=== PATIENT | female | born 1940 | race Caucasian/White ===

== ENCOUNTER 2022-09-30 13:47 | Emergency (ER) | payer MEDICAID, MEDICARE ==
[2022-09-30] MEDS ORDERED: Sodium Chloride 0.9% 1,000 ML IV ONE (16:11)
[2022-09-30 17:07] LABS: CORONAVIRUS COVID-19 NAA NEGATIVE (NEGATIVE)
[2022-09-30] MEDS ORDERED: Nitrofurantoin Monohydrate/Macrocrystalline 100 MG Cap PO STA (18:13)
== END 2022-09-30 21:55 | disposition home or self-care (01) ==
LOC: JD.ED 13:47
DX: N39.0 Urinary tract infection, site not specified (principal); E78.00 Pure hypercholesterolemia, unspecified; I12.9 Hypertensive chronic kidney disease with stage 1 through stage 4 chronic kidney disease, or unspecified chronic kidney disease; N18.9 Chronic kidney disease, unspecified; E03.9 Hypothyroidism, unspecified; M19.90 Unspecified osteoarthritis, unspecified site; Z86.16 Personal history of COVID-19; Z87.891 Personal history of nicotine dependence; Z88.8 Allergy status to other drugs, medicaments and biological substances; Z79.01 Long term (current) use of anticoagulants; Z79.899 Other long term (current) drug therapy; Z20.822 Contact with and (suspected) exposure to COVID-19
CPT/HCPCS: 0241U; 36415; 80053; 81001; 83605; 83735; 84443; 84484; 85025; 87040; 87086; 93005; 96360; 96361; 99284; A9270; J7030; 87088; 87186; 93010; 99283

== ENCOUNTER 2022-11-11 07:53 | Emergency (ER) | payer MEDICARE, BC ==
[2022-11-11 09:44] LABS: BASOPHILS ABSOLUTE AUTO 0.01 K/mm3 (0.01-0.08); BASOPHILS PERCENT AUTO 0.1 % (0.1-1.2); EOSINOPHILS ABSOLUTE AUTO 0.05 K/mm3 (0.04-0.36); EOSINOPHILS PERCENT AUTO 0.6 (0.7-5.8); HEMATOCRIT 34.2 % (34.1-44.9); IMMATURE GRAN ABSOLUTE AUTO 0.03 K/mm3 (0.00-0.10); IMMATURE GRAN PERCENT AUTO 0.4 % (<=1.0); LYMPHOCYTES ABSOLUTE AUTO 0.81 K/mm3 (1.18-3.74); LYMPHOCYTES PERCENT AUTO 9.7 % (19.3-51.7); MEAN CORPUSCULAR HEMOGLOBIN 30.7 pg (25.6-32.2); MEAN CORPUSCULAR HGB CONC 32.2 g/dl (32.2-35.5); MEAN CORPUSCULAR VOLUME 95.5 fl (79.4-94.8); MEAN PLATELET VOLUME 9.3 fl (9.4-12.3); MONOCYTES ABSOLUTE AUTO 0.95 K/mm3 (0.24-0.36); MONOCYTES PERCENT AUTO 11.3 % (4.7-12.5); NEUTROPHILS ABSOLUTE AUTO 6.54 K/mm3 (1.56-6.13); NEUTROPHILS PERCENT AUTO 77.9 % (34.0-71.1); PLATELET COUNT,PLT 381 K/mm3 (182-369); RED BLOOD CELL COUNT 3.58 M/mm3 (3.98-5.22); WHITE BLOOD CELL COUNT,WBC 8.39 K/mm3 (3.98-10.04)
[2022-11-11 10:11] LABS: A/G RATIO 0.7 (1-2); ALBUMIN 2.2 g/dl (3.4-5.0); ANION GAP 10.1 (5-15); BILIRUBIN TOTAL 0.7 mg/dL (0.2-1.0); CALCIUM 8.1 mg/dL (8.5-10.1); EST CRCL DRUG DOSING (CG) 31.69 mL/min; POTASSIUM,K 3.1 mEq/L (3.5-5.1); PROTEIN TOTAL,TP 5.4 g/dl (6.4-8.2)
[2022-11-11 10:36] LABS: APPEARANCE,URINE SLT CLOUDY (Clear); BILIRUBIN,URINE NEGATIVE (Negative); COLOR,URINE YELLOW (Yellow); GLUCOSE,URINE NEGATIVE (Negative); KETONES,URINE NEGATIVE (Negative); LEUKOCYTE ESTERASE,URINE 1+ (Negative); NITRITE,URINE NEGATIVE (Negative); OCCULT BLOOD,URINE 1+ (Negative); PH,URINE 7.5 (5.0-8.0); PROTEIN,URINE NEGATIVE (Negative); UROBILINOGEN,URINE 0.2 (0.2-1.0)
[2022-11-11 11:09] LABS: BACTERIA,URINE RARE /hpf (FEW); EPITHELIAL CELLS,URINE 0-5 /hpf (0-5); MUCUS,URINE FEW /hpf (FEW); RBC,URINE 0-5 /hpf (0-5); WBC,URINE 0-5 /hpf (0-5)
== END 2022-11-11 15:48 | disposition home or self-care (01) ==
LOC: JD.ED 07:53
DX: R54 Age-related physical debility (principal); I12.9 Hypertensive chronic kidney disease with stage 1 through stage 4 chronic kidney disease, or unspecified chronic kidney disease; N18.9 Chronic kidney disease, unspecified; E03.9 Hypothyroidism, unspecified; Z86.16 Personal history of COVID-19; Z79.01 Long term (current) use of anticoagulants; Z79.899 Other long term (current) drug therapy
CPT/HCPCS: 36415; 80053; 81001; 85025; 93005; 99282; 99285

== ENCOUNTER 2022-11-14 10:04 | Inpatient (IN) | payer BC, MEDICARE ==
[2022-11-14] MEDS ORDERED: Sodium Chloride 0.9% 10 ML Syringe FLUSH PRN (10:30)
[2022-11-14] MEDS ORDERED: Sodium Chloride 0.9% 500 ML IV ONE (10:43)
[2022-11-14 11:02] LABS: EOSINOPHILS ABSOLUTE AUTO 0.05 K/mm3 (0.04-0.36); EOSINOPHILS PERCENT AUTO 0.9 (0.7-5.8); HEMATOCRIT 30.4 % (34.1-44.9); HEMOGLOBIN 9.8 gm/dl (11.2-15.7); IMMATURE GRAN ABSOLUTE AUTO 0.01 K/mm3 (0.00-0.10); IMMATURE GRAN PERCENT AUTO 0.2 % (<=1.0); LYMPHOCYTES ABSOLUTE AUTO 0.73 K/mm3 (1.18-3.74); LYMPHOCYTES PERCENT AUTO 13.5 % (19.3-51.7); MEAN CORPUSCULAR HEMOGLOBIN 30.5 pg (25.6-32.2); MEAN CORPUSCULAR HGB CONC 32.2 g/dl (32.2-35.5); MEAN CORPUSCULAR VOLUME 94.7 fl (79.4-94.8); MEAN PLATELET VOLUME 9.2 fl (9.4-12.3); MONOCYTES PERCENT AUTO 7.4 % (4.7-12.5); NEUTROPHILS ABSOLUTE AUTO 4.21 K/mm3 (1.56-6.13); RED BLOOD CELL COUNT 3.21 M/mm3 (3.98-5.22)
[2022-11-14 11:04] LABS: APPEARANCE,URINE CLEAR (Clear); BILIRUBIN,URINE NEGATIVE (Negative); COLOR,URINE YELLOW (Yellow); GLUCOSE,URINE NEGATIVE (Negative); KETONES,URINE NEGATIVE (Negative); LEUKOCYTE ESTERASE,URINE 1+ (Negative); NITRITE,URINE NEGATIVE (Negative); OCCULT BLOOD,URINE TRACE-INTACT (Negative); PROTEIN,URINE NEGATIVE (Negative); UROBILINOGEN,URINE 0.2 (0.2-1.0)
[2022-11-14 11:08] LABS: PLATELET COUNT,PLT 260 K/mm3 (182-369)
[2022-11-14 11:25] LABS: A/G RATIO 0.6 (1-2); ALBUMIN 1.9 g/dl (3.4-5.0); BILIRUBIN TOTAL 0.6 mg/dL (0.2-1.0); CALCIUM 7.8 mg/dL (8.5-10.1); EST CRCL DRUG DOSING (CG) 33.17 mL/min; PROTEIN TOTAL,TP 4.9 g/dl (6.4-8.2)
[2022-11-14 11:34] LABS: BACTERIA,URINE MANY /hpf (FEW); MUCUS,URINE NOT SEEN /hpf (FEW); RBC,URINE 0-5 /hpf (0-5); SQUAMOUS EPITHELIAL CELLS,UR 0-5 /hpf (0-5)
[2022-11-14] MEDS ORDERED: cefTRIAXone 1 GM in Sodium Chloride 0.9% 100 ML IV ONE (13:44)
[2022-11-14] MEDS ORDERED: oxyCODONE 5 MG Tab PO PRN (15:00)
[2022-11-14] MEDS ORDERED: Ondansetron 4 MG Tab.DIS PO PRN ×2 (18:03→18:33)
[2022-11-14] MEDS: Metoprolol Tartrate 25 MG Tab PO SCH (20:42)
[2022-11-14] MEDS: QUEtiapine 100 MG Tab PO SCH (20:43)
[2022-11-14] MEDS: Potassium Chloride 20 MEQ Tab.ER PO SCH (20:44)
[2022-11-14] MEDS: Apixaban 5 MG Tab PO SCH (20:44)
[2022-11-14] MEDS: Melatonin 3 MG Tab PO SCH (20:44)
[2022-11-15] MEDS: Levothyroxine 75 MCG Tab PO SCH (05:44)
[2022-11-15 05:56] LABS: EOSINOPHILS ABSOLUTE AUTO 0.04 K/mm3 (0.04-0.36); EOSINOPHILS PERCENT AUTO 0.5 (0.7-5.8); HEMATOCRIT 33.8 % (34.1-44.9); IMMATURE GRAN ABSOLUTE AUTO 0.01 K/mm3 (0.00-0.10); IMMATURE GRAN PERCENT AUTO 0.1 % (<=1.0); LYMPHOCYTES ABSOLUTE AUTO 0.77 K/mm3 (1.18-3.74); LYMPHOCYTES PERCENT AUTO 10.5 % (19.3-51.7); MEAN CORPUSCULAR HEMOGLOBIN 30.7 pg (25.6-32.2); MEAN CORPUSCULAR HGB CONC 32.5 g/dl (32.2-35.5); MEAN CORPUSCULAR VOLUME 94.4 fl (79.4-94.8); MEAN PLATELET VOLUME 9.3 fl (9.4-12.3); MONOCYTES ABSOLUTE AUTO 0.38 K/mm3 (0.24-0.36); MONOCYTES PERCENT AUTO 5.2 % (4.7-12.5); NEUTROPHILS ABSOLUTE AUTO 6.12 K/mm3 (1.56-6.13); NEUTROPHILS PERCENT AUTO 83.7 % (34.0-71.1); PLATELET COUNT,PLT 304 K/mm3 (182-369); RED BLOOD CELL COUNT 3.58 M/mm3 (3.98-5.22); WHITE BLOOD CELL COUNT,WBC 7.32 K/mm3 (3.98-10.04)
[2022-11-15 06:07] LABS: A/G RATIO 0.6 (1-2); ALBUMIN 1.9 g/dl (3.4-5.0); ANION GAP 14.9 (5-15); BILIRUBIN TOTAL 0.6 mg/dL (0.2-1.0); BUN/CREATININE RATIO 11.1 (14-18); CALCIUM 7.6 mg/dL (8.5-10.1); CREATININE 0.9 mg/dL (0.55-1.02); EST CRCL DRUG DOSING (CG) 35.21 mL/min; MAGNESIUM 1.6 mg/dL (1.8-2.4); POTASSIUM,K 2.9 mEq/L (3.5-5.1)
[2022-11-15] MEDS: Apixaban 5 MG Tab PO SCH ×3 (06:45→21:09)
[2022-11-15] MEDS: QUEtiapine 100 MG Tab PO SCH ×2 (06:46→21:09)
[2022-11-15] MEDS: Metoprolol Tartrate 25 MG Tab PO SCH ×3 (06:46→21:09)
[2022-11-15] MEDS: Potassium Chloride 20 MEQ Tab.ER PO SCH ×3 (06:46→21:09)
[2022-11-15] MEDS: Melatonin 3 MG Tab PO SCH ×2 (06:46→21:09)
[2022-11-15] MEDS: Potassium Chloride 10 MEQ in Premix Bag 1 BAG IV SCH ×8 (09:35→20:00)
[2022-11-15] MEDS: Carboxymethylcellulose Sodium 1% Ophth Gel 15 ML Bottle EYEBOTH SCH (09:39)
[2022-11-15] MEDS: Anastrozole 1 MG Tab PO SCH (09:42)
[2022-11-15] MEDS: Famotidine 10 MG Tab PO SCH (09:43)
[2022-11-15] MEDS: CYANOCOBALAMIN 100 MCG PO SCH (09:43)
[2022-11-15] MEDS: QUEtiapine 25 MG Tab PO SCH ×2 (09:43→15:38)
[2022-11-15] MEDS ORDERED: oxyCODONE 5 MG Tab PO PRN (10:49)
[2022-11-15] MEDS: cefTRIAXone 2 GM in Sodium Chloride 0.9% 100 ML IV SCH (15:33)
[2022-11-15] MEDS ORDERED: Magnesium Sulfate/Water 4 GM in Premix Bag 1 BAG IV ONE (17:00)
[2022-11-16] MEDS: Melatonin 3 MG Tab PO SCH ×3 (00:53→23:46)
[2022-11-16] MEDS: Levothyroxine 75 MCG Tab PO SCH (06:10)
[2022-11-16] MEDS ORDERED: oxyCODONE 5 MG Tab PO PRN (07:54)
[2022-11-16] MEDS: Anastrozole 1 MG Tab PO SCH (08:52)
[2022-11-16] MEDS: Metoprolol Tartrate 25 MG Tab PO SCH ×3 (08:52→23:45)
[2022-11-16] MEDS: Apixaban 5 MG Tab PO SCH ×3 (08:52→23:45)
[2022-11-16] MEDS: Potassium Chloride 20 MEQ Tab.ER PO SCH ×3 (08:52→23:45)
[2022-11-16] MEDS: QUEtiapine 25 MG Tab PO SCH ×2 (08:53→15:00)
[2022-11-16] MEDS: Carboxymethylcellulose Sodium 1% Ophth Gel 15 ML Bottle EYEBOTH SCH (08:53)
[2022-11-16] MEDS: CYANOCOBALAMIN 100 MCG PO SCH (08:53)
[2022-11-16] MEDS: Famotidine 10 MG Tab PO SCH (08:53)
[2022-11-16] MEDS: cefTRIAXone 2 GM in Sodium Chloride 0.9% 100 ML IV SCH (14:37)
[2022-11-16] MEDS: QUEtiapine 100 MG Tab PO SCH ×2 (22:34→23:46)
[2022-11-17 06:03] LABS: BASOPHILS ABSOLUTE AUTO 0.01 K/mm3 (0.01-0.08); BASOPHILS PERCENT AUTO 0.1 % (0.1-1.2); EOSINOPHILS PERCENT AUTO 1.1 (0.7-5.8); HEMATOCRIT 35.2 % (34.1-44.9); HEMOGLOBIN 11.6 gm/dl (11.2-15.7); IMMATURE GRAN ABSOLUTE AUTO 0.02 K/mm3 (0.00-0.10); IMMATURE GRAN PERCENT AUTO 0.2 % (<=1.0); LYMPHOCYTES ABSOLUTE AUTO 0.82 K/mm3 (1.18-3.74); LYMPHOCYTES PERCENT AUTO 9.3 % (19.3-51.7); MEAN CORPUSCULAR VOLUME 94.1 fl (79.4-94.8); MEAN PLATELET VOLUME 9.5 fl (9.4-12.3); MONOCYTES ABSOLUTE AUTO 0.43 K/mm3 (0.24-0.36); MONOCYTES PERCENT AUTO 4.9 % (4.7-12.5); NEUTROPHILS ABSOLUTE AUTO 7.43 K/mm3 (1.56-6.13); NEUTROPHILS PERCENT AUTO 84.4 % (34.0-71.1); PLATELET COUNT,PLT 295 K/mm3 (182-369); RED BLOOD CELL COUNT 3.74 M/mm3 (3.98-5.22); WHITE BLOOD CELL COUNT,WBC 8.81 K/mm3 (3.98-10.04)
[2022-11-17] MEDS: Levothyroxine 75 MCG Tab PO SCH (06:14)
[2022-11-17 06:23] LABS: A/G RATIO 0.6 (1-2); ANION GAP 11.9 (5-15); BILIRUBIN TOTAL 0.5 mg/dL (0.2-1.0); BUN/CREATININE RATIO 7.5 (14-18); CALCIUM 7.6 mg/dL (8.5-10.1); CREATININE 0.8 mg/dL (0.55-1.02); EST CRCL DRUG DOSING (CG) 39.61 mL/min; POTASSIUM,K 2.9 mEq/L (3.5-5.1); PROTEIN TOTAL,TP 5.2 g/dl (6.4-8.2)
[2022-11-17] MEDS ORDERED: Magnesium Sulfate/Water 2 GM in Premix Bag 1 BAG IV ONE (08:05)
[2022-11-17] MEDS ORDERED: Sodium Chloride 0.9% 500 ML IV ONE (08:38)
[2022-11-17] MEDS ORDERED: Sodium Chloride 0.9% 500 ML ONE (08:40)
[2022-11-17] MEDS: Potassium Chloride 10 MEQ in Premix Bag 1 BAG IV SCH ×4 (09:01→14:14)
[2022-11-17] MEDS: Metoprolol Tartrate 25 MG Tab PO SCH ×2 (09:02→21:06)
[2022-11-17] MEDS: CYANOCOBALAMIN 100 MCG PO SCH (09:13)
[2022-11-17] MEDS: Carboxymethylcellulose Sodium 1% Ophth Gel 15 ML Bottle EYEBOTH SCH (09:13)
[2022-11-17] MEDS: Potassium Chloride 20 MEQ Tab.ER PO SCH ×2 (09:14→21:08)
[2022-11-17] MEDS: Apixaban 5 MG Tab PO SCH ×2 (09:14→21:07)
[2022-11-17] MEDS: Famotidine 10 MG Tab PO SCH (09:14)
[2022-11-17] MEDS: Anastrozole 1 MG Tab PO SCH (09:14)
[2022-11-17] MEDS: QUEtiapine 25 MG Tab PO SCH ×2 (09:14→16:02)
[2022-11-17] MEDS: cefTRIAXone 2 GM in Sodium Chloride 0.9% 100 ML IV SCH (15:48)
[2022-11-17] MEDS: Sodium Chloride 0.9% 1,000 ML IV SCH (16:10)
[2022-11-17] MEDS: Melatonin 3 MG Tab PO SCH (21:07)
[2022-11-17] MEDS: QUEtiapine 100 MG Tab PO SCH (21:07)
[2022-11-18] MEDS: Sodium Chloride 0.9% 1,000 ML IV SCH (05:56)
[2022-11-18] MEDS: Levothyroxine 75 MCG Tab PO SCH (06:00)
[2022-11-18] MEDS: Potassium Chloride 20 MEQ Tab.ER PO SCH ×2 (09:49→21:12)
[2022-11-18] MEDS: Metoprolol Tartrate 25 MG Tab PO SCH ×2 (09:49→21:09)
[2022-11-18] MEDS: Anastrozole 1 MG Tab PO SCH (09:49)
[2022-11-18] MEDS: Apixaban 5 MG Tab PO SCH ×2 (09:49→21:09)
[2022-11-18] MEDS: Famotidine 10 MG Tab PO SCH (09:49)
[2022-11-18] MEDS: QUEtiapine 25 MG Tab PO SCH ×2 (09:50→14:18)
[2022-11-18] MEDS: Carboxymethylcellulose Sodium 1% Ophth Gel 15 ML Bottle EYEBOTH SCH (09:50)
[2022-11-18] MEDS: CYANOCOBALAMIN 100 MCG PO SCH (09:50)
[2022-11-18 13:48] LABS: ANION GAP 11.6 (5-15); BUN/CREATININE RATIO 6.7 (14-18); CALCIUM 7.9 mg/dL (8.5-10.1); CREATININE 1.2 mg/dL (0.55-1.02); EST CRCL DRUG DOSING (CG) 26.41 mL/min; MAGNESIUM 2.3 mg/dL (1.8-2.4); POTASSIUM,K 2.6 mEq/L (3.5-5.1)
[2022-11-18] MEDS: cefTRIAXone 2 GM in Sodium Chloride 0.9% 100 ML IV SCH (14:18)
[2022-11-18] MEDS: QUEtiapine 100 MG Tab PO SCH (21:09)
[2022-11-18] MEDS: Melatonin 3 MG Tab PO SCH (21:09)
[2022-11-19] MEDS: Levothyroxine 75 MCG Tab PO SCH (06:05)
[2022-11-19] MEDS: Apixaban 5 MG Tab PO SCH ×2 (10:23→20:56)
[2022-11-19] MEDS: Anastrozole 1 MG Tab PO SCH (10:23)
[2022-11-19] MEDS: Famotidine 10 MG Tab PO SCH (10:24)
[2022-11-19] MEDS: Metoprolol Tartrate 25 MG Tab PO SCH ×2 (10:24→20:56)
[2022-11-19] MEDS: Potassium Chloride 20 MEQ Tab.ER PO SCH ×3 (10:24→20:55)
[2022-11-19] MEDS: CYANOCOBALAMIN 100 MCG PO SCH (10:25)
[2022-11-19] MEDS: Carboxymethylcellulose Sodium 1% Ophth Gel 15 ML Bottle EYEBOTH SCH (10:25)
[2022-11-19] MEDS: QUEtiapine 25 MG Tab PO SCH ×2 (10:25→14:35)
[2022-11-19] MEDS: Cefdinir 300 MG Cap PO SCH (14:35)
[2022-11-19] MEDS: QUEtiapine 100 MG Tab PO SCH (20:56)
[2022-11-19] MEDS: Melatonin 3 MG Tab PO SCH (20:56)
[2022-11-20] MEDS: Levothyroxine 75 MCG Tab PO SCH (06:09)
[2022-11-20] MEDS: Potassium Chloride 20 MEQ Tab.ER PO SCH ×5 (09:13→21:26)
[2022-11-20] MEDS: Famotidine 10 MG Tab PO SCH (09:14)
[2022-11-20] MEDS: Metoprolol Tartrate 25 MG Tab PO SCH ×3 (09:14→21:28)
[2022-11-20] MEDS: Apixaban 5 MG Tab PO SCH ×3 (09:14→21:28)
[2022-11-20] MEDS: Carboxymethylcellulose Sodium 1% Ophth Gel 15 ML Bottle EYEBOTH SCH (09:18)
[2022-11-20] MEDS: CYANOCOBALAMIN 100 MCG PO SCH (09:19)
[2022-11-20 10:16] LABS: BUN/CREATININE RATIO 7.8 (14-18); CALCIUM 7.8 mg/dL (8.5-10.1); CREATININE 0.9 mg/dL (0.55-1.02); EST CRCL DRUG DOSING (CG) 35.21 mL/min
[2022-11-20] MEDS: Cefdinir 300 MG Cap PO SCH (15:34)
[2022-11-20] MEDS: QUEtiapine 25 MG Tab PO SCH ×2 (15:39→15:49)
[2022-11-20] MEDS: Anastrozole 1 MG Tab PO SCH (15:40)
[2022-11-20] MEDS: QUEtiapine 100 MG Tab PO SCH ×2 (21:20→21:36)
[2022-11-20] MEDS: Melatonin 3 MG Tab PO SCH ×2 (21:21→21:29)
[2022-11-21] MEDS: Levothyroxine 75 MCG Tab PO SCH (05:35)
[2022-11-21 05:44] LABS: APPEARANCE,URINE CLEAR (Clear); BILIRUBIN,URINE NEGATIVE (Negative); COLOR,URINE YELLOW (Yellow); GLUCOSE,URINE NEGATIVE (Negative); KETONES,URINE NEGATIVE (Negative); LEUKOCYTE ESTERASE,URINE TRACE (Negative); NITRITE,URINE NEGATIVE (Negative); OCCULT BLOOD,URINE TRACE-INTACT (Negative); PH,URINE 6.5 (5.0-8.0); PROTEIN,URINE NEGATIVE (Negative); UROBILINOGEN,URINE 0.2 (0.2-1.0)
[2022-11-21 06:39] LABS: BACTERIA,URINE MANY /hpf (FEW); EPITHELIAL CELLS,URINE 0-5 /hpf (0-5); MUCUS,URINE RARE /hpf (FEW); RBC,URINE 0-5 /hpf (0-5); WBC CLUMPS,URINE FEW /hpf (NOT SEEN)
[2022-11-21] MEDS: Metoprolol Tartrate 25 MG Tab PO SCH ×2 (11:25→21:50)
[2022-11-21] MEDS: Apixaban 5 MG Tab PO SCH ×2 (11:25→21:50)
[2022-11-21] MEDS: Cefdinir 300 MG Cap PO SCH ×2 (11:26→21:50)
[2022-11-21] MEDS: CYANOCOBALAMIN 100 MCG PO SCH (11:27)
[2022-11-21] MEDS: Carboxymethylcellulose Sodium 1% Ophth Gel 15 ML Bottle EYEBOTH SCH (11:27)
[2022-11-21] MEDS: Famotidine 10 MG Tab PO SCH (11:27)
[2022-11-21] MEDS: QUEtiapine 25 MG Tab PO SCH ×2 (11:31→14:23)
[2022-11-21] MEDS: Anastrozole 1 MG Tab PO SCH (11:42)
[2022-11-21] MEDS: Potassium Chloride 20 MEQ Tab.ER PO SCH ×3 (14:20→21:50)
[2022-11-21] MEDS: QUEtiapine 100 MG Tab PO SCH (21:50)
[2022-11-21] MEDS: Melatonin 3 MG Tab PO SCH (21:53)
[2022-11-22] MEDS: Levothyroxine 75 MCG Tab PO SCH (05:55)
[2022-11-22] MEDS: Apixaban 5 MG Tab PO SCH ×3 (06:04→21:39)
[2022-11-22] MEDS: Metoprolol Tartrate 25 MG Tab PO SCH ×3 (06:05→21:37)
[2022-11-22] MEDS: QUEtiapine 100 MG Tab PO SCH ×2 (06:05→21:38)
[2022-11-22] MEDS: Potassium Chloride 20 MEQ Tab.ER PO SCH ×4 (06:05→21:39)
[2022-11-22] MEDS: Anastrozole 1 MG Tab PO SCH (08:24)
[2022-11-22] MEDS: Famotidine 10 MG Tab PO SCH (08:24)
[2022-11-22] MEDS: Cefdinir 300 MG Cap PO SCH ×2 (08:24→21:37)
[2022-11-22] MEDS: CYANOCOBALAMIN 100 MCG PO SCH (11:01)
[2022-11-22] MEDS: QUEtiapine 25 MG Tab PO SCH ×2 (11:35→15:22)
[2022-11-22] MEDS: Carboxymethylcellulose Sodium 1% Ophth Gel 15 ML Bottle EYEBOTH SCH (11:35)
[2022-11-22] MEDS: Melatonin 3 MG Tab PO SCH (21:39)
[2022-11-23] MEDS: Levothyroxine 75 MCG Tab PO SCH (05:02)
[2022-11-23] MEDS: Metoprolol Tartrate 25 MG Tab PO SCH ×3 (09:52→21:26)
[2022-11-23] MEDS: Anastrozole 1 MG Tab PO SCH ×2 (09:53→10:07)
[2022-11-23] MEDS: Cefdinir 300 MG Cap PO SCH ×2 (09:53→10:07)
[2022-11-23] MEDS: Famotidine 10 MG Tab PO SCH ×2 (09:53→10:07)
[2022-11-23] MEDS: Apixaban 5 MG Tab PO SCH ×3 (09:53→21:29)
[2022-11-23] MEDS: Carboxymethylcellulose Sodium 1% Ophth Gel 15 ML Bottle EYEBOTH SCH ×2 (09:53→10:08)
[2022-11-23] MEDS: Potassium Chloride 20 MEQ Tab.ER PO SCH ×4 (09:53→21:28)
[2022-11-23] MEDS: CYANOCOBALAMIN 100 MCG PO SCH ×2 (09:54→10:08)
[2022-11-23] MEDS: QUEtiapine 25 MG Tab PO SCH ×3 (09:58→15:58)
[2022-11-23] MEDS ORDERED: Amoxicillin 500 MG Cap PO SCH (15:30)
[2022-11-23] MEDS: Amoxicillin 500 MG Cap PO SCH (21:27)
[2022-11-23] MEDS: QUEtiapine 100 MG Tab PO SCH (21:28)
[2022-11-23] MEDS: Melatonin 3 MG Tab PO SCH (21:29)
[2022-11-24 06:01] LABS: BASOPHILS ABSOLUTE AUTO 0.01 K/mm3 (0.01-0.08); BASOPHILS PERCENT AUTO 0.2 % (0.1-1.2); EOSINOPHILS ABSOLUTE AUTO 0.13 K/mm3 (0.04-0.36); HEMATOCRIT 33.6 % (34.1-44.9); HEMOGLOBIN 10.8 gm/dl (11.2-15.7); IMMATURE GRAN ABSOLUTE AUTO 0.03 K/mm3 (0.00-0.10); IMMATURE GRAN PERCENT AUTO 0.5 % (<=1.0); LYMPHOCYTES ABSOLUTE AUTO 0.88 K/mm3 (1.18-3.74); LYMPHOCYTES PERCENT AUTO 13.3 % (19.3-51.7); MEAN CORPUSCULAR HEMOGLOBIN 31.1 pg (25.6-32.2); MEAN CORPUSCULAR HGB CONC 32.1 g/dl (32.2-35.5); MEAN CORPUSCULAR VOLUME 96.8 fl (79.4-94.8); MEAN PLATELET VOLUME 10.5 fl (9.4-12.3); MONOCYTES ABSOLUTE AUTO 0.52 K/mm3 (0.24-0.36); MONOCYTES PERCENT AUTO 7.9 % (4.7-12.5); NEUTROPHILS ABSOLUTE AUTO 5.03 K/mm3 (1.56-6.13); NEUTROPHILS PERCENT AUTO 76.1 % (34.0-71.1); PLATELET COUNT,PLT 334 K/mm3 (182-369); RED BLOOD CELL COUNT 3.47 M/mm3 (3.98-5.22)
[2022-11-24 06:05] LABS: ANION GAP 11.8 (5-15); BUN/CREATININE RATIO 8.9 (14-18); CALCIUM 7.8 mg/dL (8.5-10.1); CREATININE 0.9 mg/dL (0.55-1.02); EST CRCL DRUG DOSING (CG) 34.93 mL/min; POTASSIUM,K 2.8 mEq/L (3.5-5.1)
[2022-11-24] MEDS: Levothyroxine 75 MCG Tab PO SCH (06:32)
[2022-11-24] MEDS: Amoxicillin 500 MG Cap PO SCH ×3 (06:32→21:49)
[2022-11-24] MEDS: Famotidine 10 MG Tab PO SCH (08:26)
[2022-11-24] MEDS: Potassium Chloride 20 MEQ Tab.ER PO SCH ×3 (08:26→21:49)
[2022-11-24] MEDS: Apixaban 5 MG Tab PO SCH ×2 (08:26→21:49)
[2022-11-24] MEDS: Metoprolol Tartrate 25 MG Tab PO SCH ×2 (08:27→21:49)
[2022-11-24] MEDS: Anastrozole 1 MG Tab PO SCH (08:27)
[2022-11-24] MEDS: Carboxymethylcellulose Sodium 1% Ophth Gel 15 ML Bottle EYEBOTH SCH (08:29)
[2022-11-24] MEDS: CYANOCOBALAMIN 100 MCG PO SCH (09:00)
[2022-11-24] MEDS: QUEtiapine 25 MG Tab PO SCH ×2 (09:00→15:02)
[2022-11-24] MEDS: Melatonin 3 MG Tab PO SCH (21:49)
[2022-11-24] MEDS: QUEtiapine 100 MG Tab PO SCH (21:49)
[2022-11-25] MEDS ORDERED: Midodrine 5 MG Tab PO ONE (00:15)
[2022-11-25] MEDS ORDERED: Sodium Chloride 0.9% 1,000 ML IV SCH (00:30)
[2022-11-25] MEDS ORDERED: Midodrine 5 MG Tab PO SCH (07:00)
[2022-11-25] MEDS: Amoxicillin 500 MG Cap PO SCH ×3 (07:07→21:10)
[2022-11-25] MEDS: Levothyroxine 75 MCG Tab PO SCH (07:08)
[2022-11-25] MEDS: Apixaban 5 MG Tab PO SCH ×2 (08:50→20:32)
[2022-11-25] MEDS: Anastrozole 1 MG Tab PO SCH (08:50)
[2022-11-25] MEDS: Potassium Chloride 20 MEQ Tab.ER PO SCH ×3 (08:50→20:34)
[2022-11-25] MEDS: Famotidine 10 MG Tab PO SCH (08:50)
[2022-11-25] MEDS: Carboxymethylcellulose Sodium 1% Ophth Gel 15 ML Bottle EYEBOTH SCH (08:53)
[2022-11-25] MEDS: CYANOCOBALAMIN 100 MCG PO SCH (09:59)
[2022-11-25] MEDS: QUEtiapine 25 MG Tab PO SCH ×2 (09:59→16:07)
[2022-11-25 11:16] LABS: BASOPHILS ABSOLUTE AUTO 0.01 K/mm3 (0.01-0.08); BASOPHILS PERCENT AUTO 0.2 % (0.1-1.2); EOSINOPHILS ABSOLUTE AUTO 0.12 K/mm3 (0.04-0.36); EOSINOPHILS PERCENT AUTO 2.2 (0.7-5.8); HEMATOCRIT 28.6 % (34.1-44.9); HEMOGLOBIN 9.1 gm/dl (11.2-15.7); IMMATURE GRAN ABSOLUTE AUTO 0.02 K/mm3 (0.00-0.10); IMMATURE GRAN PERCENT AUTO 0.4 % (<=1.0); LYMPHOCYTES ABSOLUTE AUTO 0.76 K/mm3 (1.18-3.74); LYMPHOCYTES PERCENT AUTO 14.2 % (19.3-51.7); MEAN CORPUSCULAR HEMOGLOBIN 30.7 pg (25.6-32.2); MEAN CORPUSCULAR HGB CONC 31.8 g/dl (32.2-35.5); MEAN CORPUSCULAR VOLUME 96.6 fl (79.4-94.8); MEAN PLATELET VOLUME 10.4 fl (9.4-12.3); MONOCYTES ABSOLUTE AUTO 0.41 K/mm3 (0.24-0.36); MONOCYTES PERCENT AUTO 7.6 % (4.7-12.5); NEUTROPHILS ABSOLUTE AUTO 4.04 K/mm3 (1.56-6.13); NEUTROPHILS PERCENT AUTO 75.4 % (34.0-71.1); PLATELET COUNT,PLT 260 K/mm3 (182-369); RED BLOOD CELL COUNT 2.96 M/mm3 (3.98-5.22); WHITE BLOOD CELL COUNT,WBC 5.36 K/mm3 (3.98-10.04)
[2022-11-25 12:26] LABS: A/G RATIO 0.6 (1-2); ALBUMIN 1.7 g/dl (3.4-5.0); ANION GAP 13.6 (5-15); BILIRUBIN TOTAL 0.2 mg/dL (0.2-1.0); BUN/CREATININE RATIO 11.1 (14-18); CALCIUM 7.5 mg/dL (8.5-10.1); CREATININE 0.9 mg/dL (0.55-1.02); EST CRCL DRUG DOSING (CG) 34.95 mL/min; POTASSIUM,K 3.6 mEq/L (3.5-5.1); PROTEIN TOTAL,TP 4.8 g/dl (6.4-8.2)
[2022-11-25] MEDS: Melatonin 3 MG Tab PO SCH (20:33)
[2022-11-25] MEDS: QUEtiapine 100 MG Tab PO SCH (20:33)
[2022-11-26] MEDS: Levothyroxine 75 MCG Tab PO SCH (05:58)
[2022-11-26] MEDS: Amoxicillin 500 MG Cap PO SCH ×4 (05:58→21:19)
[2022-11-26 06:35] LABS: BASOPHILS ABSOLUTE AUTO 0.01 K/mm3 (0.01-0.08); BASOPHILS PERCENT AUTO 0.3 % (0.1-1.2); EOSINOPHILS ABSOLUTE AUTO 0.16 K/mm3 (0.04-0.36); EOSINOPHILS PERCENT AUTO 4.3 (0.7-5.8); HEMOGLOBIN 8.8 gm/dl (11.2-15.7); IMMATURE GRAN ABSOLUTE AUTO 0.01 K/mm3 (0.00-0.10); IMMATURE GRAN PERCENT AUTO 0.3 % (<=1.0); LYMPHOCYTES ABSOLUTE AUTO 1.03 K/mm3 (1.18-3.74); MEAN CORPUSCULAR HEMOGLOBIN 30.9 pg (25.6-32.2); MEAN CORPUSCULAR HGB CONC 31.4 g/dl (32.2-35.5); MEAN CORPUSCULAR VOLUME 98.2 fl (79.4-94.8); MONOCYTES ABSOLUTE AUTO 0.36 K/mm3 (0.24-0.36); MONOCYTES PERCENT AUTO 9.8 % (4.7-12.5); NEUTROPHILS ABSOLUTE AUTO 2.11 K/mm3 (1.56-6.13); NEUTROPHILS PERCENT AUTO 57.3 % (34.0-71.1); PLATELET COUNT,PLT 283 K/mm3 (182-369); RED BLOOD CELL COUNT 2.85 M/mm3 (3.98-5.22); WHITE BLOOD CELL COUNT,WBC 3.68 K/mm3 (3.98-10.04)
[2022-11-26 07:12] LABS: ANION GAP 13.9 (5-15); CALCIUM 8.1 mg/dL (8.5-10.1); CREATININE 0.9 mg/dL (0.55-1.02); EST CRCL DRUG DOSING (CG) 34.95 mL/min; POTASSIUM,K 4.9 mEq/L (3.5-5.1)
[2022-11-26] MEDS: Famotidine 10 MG Tab PO SCH (09:26)
[2022-11-26] MEDS: QUEtiapine 25 MG Tab PO SCH ×2 (09:26→14:03)
[2022-11-26] MEDS: Apixaban 5 MG Tab PO SCH ×3 (09:27→21:27)
[2022-11-26] MEDS: Anastrozole 1 MG Tab PO SCH (09:27)
[2022-11-26] MEDS: Potassium Chloride 20 MEQ Tab.ER PO SCH (09:27)
[2022-11-26] MEDS: CYANOCOBALAMIN 100 MCG PO SCH (09:57)
[2022-11-26] MEDS: Carboxymethylcellulose Sodium 1% Ophth Gel 15 ML Bottle EYEBOTH SCH (09:57)
[2022-11-26] MEDS: Melatonin 3 MG Tab PO SCH ×2 (21:12→21:26)
[2022-11-26] MEDS: QUEtiapine 100 MG Tab PO SCH ×2 (21:12→21:27)
[2022-11-27] MEDS: Amoxicillin 500 MG Cap PO SCH (06:41)
[2022-11-27] MEDS: Levothyroxine 75 MCG Tab PO SCH (06:41)
[2022-11-27] MEDS ORDERED: Potassium Chloride 20 MEQ Tab.ER PO SCH (09:00)
[2022-11-27] MEDS: Apixaban 5 MG Tab PO SCH ×2 (10:32→21:16)
[2022-11-27] MEDS: QUEtiapine 25 MG Tab PO SCH ×2 (10:32→15:15)
[2022-11-27] MEDS: Famotidine 10 MG Tab PO SCH (10:32)
[2022-11-27] MEDS: CYANOCOBALAMIN 100 MCG PO SCH (10:33)
[2022-11-27] MEDS: Anastrozole 1 MG Tab PO SCH (10:35)
[2022-11-27] MEDS: Carboxymethylcellulose Sodium 1% Ophth Gel 15 ML Bottle EYEBOTH SCH (14:23)
[2022-11-27] MEDS: Nitrofurantoin Monohydrate/Macrocrystalline 100 MG Cap PO SCH ×2 (15:15→21:15)
[2022-11-27] MEDS: QUEtiapine 100 MG Tab PO SCH (21:15)
[2022-11-27] MEDS: Melatonin 3 MG Tab PO SCH (21:16)
[2022-11-28] MEDS: Levothyroxine 75 MCG Tab PO SCH (06:16)
[2022-11-28 08:06] LABS: BASOPHILS ABSOLUTE AUTO 0.02 K/mm3 (0.01-0.08); BASOPHILS PERCENT AUTO 0.5 % (0.1-1.2); EOSINOPHILS ABSOLUTE AUTO 0.13 K/mm3 (0.04-0.36); EOSINOPHILS PERCENT AUTO 3.3 (0.7-5.8); HEMATOCRIT 30.6 % (34.1-44.9); HEMOGLOBIN 9.7 gm/dl (11.2-15.7); IMMATURE GRAN ABSOLUTE AUTO 0.01 K/mm3 (0.00-0.10); IMMATURE GRAN PERCENT AUTO 0.3 % (<=1.0); LYMPHOCYTES ABSOLUTE AUTO 0.65 K/mm3 (1.18-3.74); LYMPHOCYTES PERCENT AUTO 16.3 % (19.3-51.7); MEAN CORPUSCULAR HEMOGLOBIN 31.5 pg (25.6-32.2); MEAN CORPUSCULAR HGB CONC 31.7 g/dl (32.2-35.5); MEAN CORPUSCULAR VOLUME 99.4 fl (79.4-94.8); MEAN PLATELET VOLUME 9.5 fl (9.4-12.3); MONOCYTES ABSOLUTE AUTO 0.38 K/mm3 (0.24-0.36); MONOCYTES PERCENT AUTO 9.5 % (4.7-12.5); NEUTROPHILS ABSOLUTE AUTO 2.81 K/mm3 (1.56-6.13); NEUTROPHILS PERCENT AUTO 70.1 % (34.0-71.1); PLATELET COUNT,PLT 335 K/mm3 (182-369); RED BLOOD CELL COUNT 3.08 M/mm3 (3.98-5.22)
[2022-11-28 08:26] LABS: ANION GAP 12.3 (5-15); BUN/CREATININE RATIO 8.8 (14-18); CREATININE 0.8 mg/dL (0.55-1.02); EST CRCL DRUG DOSING (CG) 39.61 mL/min; MAGNESIUM 1.9 mg/dL (1.8-2.4)
[2022-11-28 08:39] LABS: POTASSIUM,K 3.3 mEq/L (3.5-5.1)
[2022-11-28] MEDS ORDERED: Potassium Chloride 20 MEQ Tab.ER PO ONE (10:00)
[2022-11-28] MEDS: Apixaban 5 MG Tab PO SCH ×2 (10:30→20:47)
[2022-11-28] MEDS: Famotidine 10 MG Tab PO SCH (10:30)
[2022-11-28] MEDS: QUEtiapine 25 MG Tab PO SCH ×2 (10:30→16:03)
[2022-11-28] MEDS: Nitrofurantoin Monohydrate/Macrocrystalline 100 MG Cap PO SCH ×2 (10:30→20:47)
[2022-11-28] MEDS: Anastrozole 1 MG Tab PO SCH (10:31)
[2022-11-28] MEDS: Carboxymethylcellulose Sodium 1% Ophth Gel 15 ML Bottle EYEBOTH SCH (10:32)
[2022-11-28] MEDS: CYANOCOBALAMIN 100 MCG PO SCH (10:34)
[2022-11-28] MEDS: Potassium Chloride 20 MEQ Tab.ER PO SCH (20:47)
[2022-11-28] MEDS: QUEtiapine 100 MG Tab PO SCH (20:47)
[2022-11-28] MEDS: Melatonin 3 MG Tab PO SCH (20:47)
[2022-11-29] MEDS: Apixaban 5 MG Tab PO SCH ×2 (10:31→21:38)
[2022-11-29] MEDS: Potassium Chloride 20 MEQ Tab.ER PO SCH ×3 (10:31→21:54)
[2022-11-29] MEDS: Anastrozole 1 MG Tab PO SCH (10:31)
[2022-11-29] MEDS: Levothyroxine 75 MCG Tab PO SCH (10:31)
[2022-11-29] MEDS: Famotidine 10 MG Tab PO SCH (10:32)
[2022-11-29] MEDS: Nitrofurantoin Monohydrate/Macrocrystalline 100 MG Cap PO SCH ×2 (10:32→21:38)
[2022-11-29] MEDS: CYANOCOBALAMIN 100 MCG PO SCH (10:32)
[2022-11-29] MEDS: QUEtiapine 25 MG Tab PO SCH ×2 (10:33→16:34)
[2022-11-29] MEDS: Carboxymethylcellulose Sodium 1% Ophth Gel 15 ML Bottle EYEBOTH SCH (10:33)
[2022-11-29] MEDS: QUEtiapine 100 MG Tab PO SCH (21:38)
[2022-11-29] MEDS: Melatonin 3 MG Tab PO SCH (21:38)
[2022-11-30] MEDS: Levothyroxine 75 MCG Tab PO SCH (05:05)
[2022-11-30] MEDS: Anastrozole 1 MG Tab PO SCH (10:14)
[2022-11-30] MEDS: Nitrofurantoin Monohydrate/Macrocrystalline 100 MG Cap PO SCH ×3 (10:14→22:06)
[2022-11-30] MEDS: QUEtiapine 25 MG Tab PO SCH ×2 (10:14→15:47)
[2022-11-30] MEDS: Famotidine 10 MG Tab PO SCH (10:14)
[2022-11-30] MEDS: Apixaban 5 MG Tab PO SCH ×3 (10:14→22:05)
[2022-11-30] MEDS: Potassium Chloride 20 MEQ Tab.ER PO SCH ×2 (10:14→21:55)
[2022-11-30] MEDS: CYANOCOBALAMIN 100 MCG PO SCH (10:34)
[2022-11-30] MEDS: Carboxymethylcellulose Sodium 1% Ophth Gel 15 ML Bottle EYEBOTH SCH (10:34)
[2022-11-30] MEDS: QUEtiapine 100 MG Tab PO SCH ×2 (21:54→22:03)
[2022-11-30] MEDS: Melatonin 3 MG Tab PO SCH ×2 (21:54→22:04)
[2022-12-01] MEDS: Levothyroxine 75 MCG Tab PO SCH (05:58)
[2022-12-01] MEDS: Apixaban 5 MG Tab PO SCH ×2 (10:14→21:40)
[2022-12-01] MEDS: Anastrozole 1 MG Tab PO SCH (10:14)
[2022-12-01] MEDS: CYANOCOBALAMIN 100 MCG PO SCH (10:15)
[2022-12-01] MEDS: Carboxymethylcellulose Sodium 1% Ophth Gel 15 ML Bottle EYEBOTH SCH (10:15)
[2022-12-01] MEDS: Famotidine 10 MG Tab PO SCH (10:15)
[2022-12-01] MEDS: Nitrofurantoin Monohydrate/Macrocrystalline 100 MG Cap PO SCH ×2 (10:15→21:41)
[2022-12-01] MEDS: Potassium Chloride 20 MEQ Tab.ER PO SCH ×2 (10:15→21:40)
[2022-12-01] MEDS: QUEtiapine 25 MG Tab PO SCH ×2 (10:16→16:34)
[2022-12-01] MEDS: QUEtiapine 100 MG Tab PO SCH (21:41)
[2022-12-01] MEDS: Melatonin 3 MG Tab PO SCH (21:41)
[2022-12-02] MEDS: Levothyroxine 75 MCG Tab PO SCH (05:23)
[2022-12-02] MEDS: Potassium Chloride 20 MEQ Tab.ER PO SCH ×2 (09:00→21:03)
[2022-12-02] MEDS: Famotidine 10 MG Tab PO SCH (09:01)
[2022-12-02] MEDS: Nitrofurantoin Monohydrate/Macrocrystalline 100 MG Cap PO SCH ×2 (09:01→21:04)
[2022-12-02] MEDS: CYANOCOBALAMIN 100 MCG PO SCH (09:01)
[2022-12-02] MEDS: Anastrozole 1 MG Tab PO SCH (09:01)
[2022-12-02] MEDS: Apixaban 5 MG Tab PO SCH ×2 (09:01→21:03)
[2022-12-02] MEDS: Carboxymethylcellulose Sodium 1% Ophth Gel 15 ML Bottle EYEBOTH SCH (09:02)
[2022-12-02] MEDS: QUEtiapine 25 MG Tab PO SCH ×2 (09:33→15:53)
[2022-12-02] MEDS: Acetaminophen 325 MG Tab PO PRN (19:19)
[2022-12-02] MEDS: QUEtiapine 100 MG Tab PO SCH (21:04)
[2022-12-02] MEDS: Melatonin 3 MG Tab PO SCH (21:05)
[2022-12-03] MEDS: Acetaminophen 325 MG Tab PO PRN (05:00)
[2022-12-03] MEDS: Levothyroxine 75 MCG Tab PO SCH (05:42)
[2022-12-03] MEDS: Nitrofurantoin Monohydrate/Macrocrystalline 100 MG Cap PO SCH ×2 (11:08→22:01)
[2022-12-03] MEDS: Potassium Chloride 20 MEQ Tab.ER PO SCH ×2 (11:08→22:02)
[2022-12-03] MEDS: Apixaban 5 MG Tab PO SCH ×2 (11:08→22:02)
[2022-12-03] MEDS: Famotidine 10 MG Tab PO SCH (11:08)
[2022-12-03] MEDS: Anastrozole 1 MG Tab PO SCH (11:08)
[2022-12-03] MEDS: QUEtiapine 25 MG Tab PO SCH ×2 (11:09→16:05)
[2022-12-03] MEDS: CYANOCOBALAMIN 100 MCG PO SCH (11:09)
[2022-12-03] MEDS: Carboxymethylcellulose Sodium 1% Ophth Gel 15 ML Bottle EYEBOTH SCH (11:09)
[2022-12-03] MEDS: QUEtiapine 100 MG Tab PO SCH (22:02)
[2022-12-03] MEDS: Melatonin 3 MG Tab PO SCH (22:02)
[2022-12-04] MEDS: Levothyroxine 75 MCG Tab PO SCH (05:17)
[2022-12-04] MEDS: Anastrozole 1 MG Tab PO SCH (10:26)
[2022-12-04] MEDS: Apixaban 5 MG Tab PO SCH ×2 (10:26→21:24)
[2022-12-04] MEDS: CYANOCOBALAMIN 100 MCG PO SCH (10:27)
[2022-12-04] MEDS: QUEtiapine 25 MG Tab PO SCH ×2 (10:27→15:26)
[2022-12-04] MEDS: Famotidine 10 MG Tab PO SCH (10:27)
[2022-12-04] MEDS: Potassium Chloride 20 MEQ Tab.ER PO SCH ×2 (10:27→21:24)
[2022-12-04] MEDS: Nitrofurantoin Monohydrate/Macrocrystalline 100 MG Cap PO SCH ×2 (10:27→21:24)
[2022-12-04] MEDS: Carboxymethylcellulose Sodium 1% Ophth Gel 15 ML Bottle EYEBOTH SCH (10:27)
[2022-12-04] MEDS: Melatonin 3 MG Tab PO SCH (21:24)
[2022-12-04] MEDS: QUEtiapine 100 MG Tab PO SCH (21:24)
[2022-12-05] MEDS: Levothyroxine 75 MCG Tab PO SCH (05:47)
[2022-12-05] MEDS: Anastrozole 1 MG Tab PO SCH (10:11)
[2022-12-05] MEDS: Apixaban 5 MG Tab PO SCH (10:12)
[2022-12-05] MEDS: Famotidine 10 MG Tab PO SCH (10:12)
[2022-12-05] MEDS: Potassium Chloride 20 MEQ Tab.ER PO SCH (10:12)
[2022-12-05] MEDS: QUEtiapine 25 MG Tab PO SCH ×2 (10:12→17:39)
[2022-12-05] MEDS: Carboxymethylcellulose Sodium 1% Ophth Gel 15 ML Bottle EYEBOTH SCH (10:12)
[2022-12-05] MEDS: CYANOCOBALAMIN 100 MCG PO SCH (10:12)
[2022-12-06] MEDS: QUEtiapine 100 MG Tab PO SCH ×2 (00:40→03:22)
[2022-12-06] MEDS: Apixaban 5 MG Tab PO SCH ×4 (00:40→10:53)
[2022-12-06] MEDS: Melatonin 3 MG Tab PO SCH ×2 (00:40→03:22)
[2022-12-06] MEDS: Potassium Chloride 20 MEQ Tab.ER PO SCH ×3 (00:40→10:49)
[2022-12-06] MEDS: Levothyroxine 75 MCG Tab PO SCH (07:00)
[2022-12-06] MEDS: Famotidine 10 MG Tab PO SCH (10:49)
[2022-12-06] MEDS: Anastrozole 1 MG Tab PO SCH (10:49)
[2022-12-06] MEDS: QUEtiapine 25 MG Tab PO SCH ×2 (10:50→19:00)
[2022-12-06] MEDS: Carboxymethylcellulose Sodium 1% Ophth Gel 15 ML Bottle EYEBOTH SCH (10:50)
[2022-12-06] MEDS: CYANOCOBALAMIN 100 MCG PO SCH (10:50)
[2022-12-06 13:28] LABS: BASOPHILS ABSOLUTE AUTO 0.02 K/mm3 (0.01-0.08); BASOPHILS PERCENT AUTO 0.4 % (0.1-1.2); EOSINOPHILS ABSOLUTE AUTO 0.06 K/mm3 (0.04-0.36); EOSINOPHILS PERCENT AUTO 1.1 (0.7-5.8); HEMATOCRIT 31.3 % (34.1-44.9); IMMATURE GRAN ABSOLUTE AUTO 0.02 K/mm3 (0.00-0.10); IMMATURE GRAN PERCENT AUTO 0.4 % (<=1.0); LYMPHOCYTES ABSOLUTE AUTO 0.86 K/mm3 (1.18-3.74); LYMPHOCYTES PERCENT AUTO 15.9 % (19.3-51.7); MEAN CORPUSCULAR HEMOGLOBIN 31.3 pg (25.6-32.2); MEAN CORPUSCULAR HGB CONC 31.9 g/dl (32.2-35.5); MEAN CORPUSCULAR VOLUME 98.1 fl (79.4-94.8); MONOCYTES ABSOLUTE AUTO 0.43 K/mm3 (0.24-0.36); NEUTROPHILS ABSOLUTE AUTO 4.01 K/mm3 (1.56-6.13); NEUTROPHILS PERCENT AUTO 74.2 % (34.0-71.1); PLATELET COUNT,PLT 434 K/mm3 (182-369); RED BLOOD CELL COUNT 3.19 M/mm3 (3.98-5.22)
[2022-12-06 13:45] LABS: ANION GAP 11.6 (5-15); BUN/CREATININE RATIO 17.1 (14-18); CALCIUM 7.9 mg/dL (8.5-10.1); CREATININE 0.7 mg/dL (0.55-1.02); EST CRCL DRUG DOSING (CG) 45.27 mL/min; MAGNESIUM 1.7 mg/dL (1.8-2.4); PHOSPHORUS 2.6 mg/dL (2.6-4.7); POTASSIUM,K 2.6 mEq/L (3.5-5.1)
[2022-12-07] MEDS: Levothyroxine 75 MCG Tab PO SCH (06:15)
[2022-12-07] MEDS: Carboxymethylcellulose Sodium 1% Ophth Gel 15 ML Bottle EYEBOTH SCH (11:28)
[2022-12-07] MEDS: Anastrozole 1 MG Tab PO SCH (11:28)
[2022-12-07] MEDS: QUEtiapine 25 MG Tab PO SCH ×2 (11:28→17:11)
[2022-12-07] MEDS: Famotidine 10 MG Tab PO SCH (11:28)
[2022-12-07] MEDS: Potassium Chloride 20 MEQ Tab.ER PO SCH ×2 (11:28→20:45)
[2022-12-07] MEDS: Apixaban 5 MG Tab PO SCH ×2 (11:28→20:41)
[2022-12-07] MEDS: CYANOCOBALAMIN 100 MCG PO SCH (11:29)
[2022-12-07] MEDS ORDERED: Magnesium Sulfate (4.06 MEQ/ML) 5 GM/10 ML SDV IV STA (13:59)
[2022-12-07] MEDS ORDERED: Magnesium Sulfate/Water 50 ML IV ONE (14:15)
[2022-12-07] MEDS: Potassium Chloride 10 MEQ in Premix Bag 1 BAG IV SCH ×9 (15:17→23:39)
[2022-12-07] MEDS ORDERED: Sodium Chloride 0.9% 1,000 ML ONE (15:36)
[2022-12-07] MEDS: Melatonin 3 MG Tab PO SCH (20:45)
[2022-12-07] MEDS: QUEtiapine 100 MG Tab PO SCH (20:45)
[2022-12-08] MEDS: Levothyroxine 75 MCG Tab PO SCH (05:46)
[2022-12-08 06:12] LABS: ANION GAP 11.2 (5-15); BUN/CREATININE RATIO 11.1 (14-18); CREATININE 0.9 mg/dL (0.55-1.02); EST CRCL DRUG DOSING (CG) 35.21 mL/min
[2022-12-08 06:18] LABS: POTASSIUM,K 4.2 mEq/L (3.5-5.1)
[2022-12-08] MEDS: Famotidine 10 MG Tab PO SCH (09:03)
[2022-12-08] MEDS: QUEtiapine 25 MG Tab PO SCH ×2 (09:03→14:00)
[2022-12-08] MEDS: Potassium Chloride 20 MEQ Tab.ER PO SCH ×2 (09:03→21:26)
[2022-12-08] MEDS: Apixaban 5 MG Tab PO SCH ×2 (09:04→21:26)
[2022-12-08] MEDS: Carboxymethylcellulose Sodium 1% Ophth Gel 15 ML Bottle EYEBOTH SCH (09:13)
[2022-12-08] MEDS: Anastrozole 1 MG Tab PO SCH (09:14)
[2022-12-08] MEDS: CYANOCOBALAMIN 100 MCG PO SCH (09:14)
[2022-12-08] MEDS: QUEtiapine 100 MG Tab PO SCH (21:26)
[2022-12-08] MEDS: Melatonin 3 MG Tab PO SCH (21:26)
[2022-12-09] MEDS: Levothyroxine 75 MCG Tab PO SCH (05:57)
[2022-12-09] MEDS: QUEtiapine 25 MG Tab PO SCH ×3 (08:48→16:38)
[2022-12-09] MEDS: Famotidine 10 MG Tab PO SCH (08:48)
[2022-12-09] MEDS: Apixaban 5 MG Tab PO SCH ×2 (08:48→21:07)
[2022-12-09] MEDS: Potassium Chloride 20 MEQ Tab.ER PO SCH ×2 (08:49→21:07)
[2022-12-09] MEDS: Carboxymethylcellulose Sodium 1% Ophth Gel 15 ML Bottle EYEBOTH SCH (09:00)
[2022-12-09] MEDS: Anastrozole 1 MG Tab PO SCH (11:47)
[2022-12-09] MEDS: CYANOCOBALAMIN 100 MCG PO SCH (11:47)
[2022-12-09] MEDS: Melatonin 3 MG Tab PO SCH (21:07)
[2022-12-09] MEDS: QUEtiapine 100 MG Tab PO SCH (21:07)
[2022-12-10] MEDS: Levothyroxine 75 MCG Tab PO SCH (07:10)
[2022-12-10] MEDS: Carboxymethylcellulose Sodium 1% Ophth Gel 15 ML Bottle EYEBOTH SCH (09:29)
[2022-12-10] MEDS: Potassium Chloride 20 MEQ Tab.ER PO SCH ×2 (09:29→21:01)
[2022-12-10] MEDS: Apixaban 5 MG Tab PO SCH ×2 (09:30→21:00)
[2022-12-10] MEDS: Famotidine 10 MG Tab PO SCH (09:30)
[2022-12-10] MEDS: QUEtiapine 25 MG Tab PO SCH ×2 (09:30→15:51)
[2022-12-10] MEDS: Anastrozole 1 MG Tab PO SCH (09:30)
[2022-12-10] MEDS: CYANOCOBALAMIN 100 MCG PO SCH (09:31)
[2022-12-10] MEDS: Melatonin 3 MG Tab PO SCH (21:00)
[2022-12-10] MEDS: QUEtiapine 100 MG Tab PO SCH (21:00)
[2022-12-11] MEDS: Apixaban 5 MG Tab PO SCH ×2 (09:25→20:12)
[2022-12-11] MEDS: Famotidine 10 MG Tab PO SCH (09:26)
[2022-12-11] MEDS: QUEtiapine 25 MG Tab PO SCH ×2 (09:26→16:06)
[2022-12-11] MEDS: Potassium Chloride 20 MEQ Tab.ER PO SCH ×2 (09:27→20:12)
[2022-12-11] MEDS: Levothyroxine 75 MCG Tab PO SCH (09:27)
[2022-12-11] MEDS: Anastrozole 1 MG Tab PO SCH (09:28)
[2022-12-11] MEDS: Carboxymethylcellulose Sodium 1% Ophth Gel 15 ML Bottle EYEBOTH SCH (11:22)
[2022-12-11] MEDS: CYANOCOBALAMIN 100 MCG PO SCH (11:22)
[2022-12-11] MEDS: QUEtiapine 100 MG Tab PO SCH (20:12)
[2022-12-11] MEDS: Melatonin 3 MG Tab PO SCH (20:12)
[2022-12-12] MEDS: Levothyroxine 75 MCG Tab PO SCH (06:08)
[2022-12-12 06:36] LABS: ANION GAP 14.4 (5-15); BUN/CREATININE RATIO 11.3 (14-18); CALCIUM 8.2 mg/dL (8.5-10.1); CREATININE 0.8 mg/dL (0.55-1.02); EST CRCL DRUG DOSING (CG) 39.37 mL/min; MAGNESIUM 1.7 mg/dL (1.8-2.4); POTASSIUM,K 3.4 mEq/L (3.5-5.1)
[2022-12-12] MEDS ORDERED: Potassium Chloride 20 MEQ Tab.ER PO ONE (09:00)
[2022-12-12] MEDS ORDERED: Magnesium Sulfate/Water 2 GM in Premix Bag 1 BAG IV ONE (09:00)
[2022-12-12] MEDS: Anastrozole 1 MG Tab PO SCH (10:11)
[2022-12-12] MEDS: Famotidine 10 MG Tab PO SCH (10:11)
[2022-12-12] MEDS: Apixaban 5 MG Tab PO SCH ×2 (10:12→23:30)
[2022-12-12] MEDS: Potassium Chloride 20 MEQ Tab.ER PO SCH ×2 (10:12→23:30)
[2022-12-12] MEDS: QUEtiapine 25 MG Tab PO SCH ×2 (10:12→18:37)
[2022-12-12] MEDS: CYANOCOBALAMIN 100 MCG PO SCH (10:13)
[2022-12-12] MEDS: Carboxymethylcellulose Sodium 1% Ophth Gel 15 ML Bottle EYEBOTH SCH (10:13)
[2022-12-12] MEDS ORDERED: oxyCODONE 5 MG Tab PO PRN (14:17)
[2022-12-12] MEDS: QUEtiapine 100 MG Tab PO SCH (23:30)
[2022-12-12] MEDS: Melatonin 3 MG Tab PO SCH (23:30)
[2022-12-13] MEDS: Levothyroxine 75 MCG Tab PO SCH ×2 (06:19→06:30)
[2022-12-13] MEDS: Anastrozole 1 MG Tab PO SCH (09:06)
[2022-12-13] MEDS: Famotidine 10 MG Tab PO SCH (09:06)
[2022-12-13] MEDS: QUEtiapine 25 MG Tab PO SCH ×2 (09:06→15:34)
[2022-12-13] MEDS: Apixaban 5 MG Tab PO SCH ×2 (09:06→21:11)
[2022-12-13] MEDS: Potassium Chloride 20 MEQ Tab.ER PO SCH ×2 (09:06→21:11)
[2022-12-13] MEDS: CYANOCOBALAMIN 100 MCG PO SCH (09:12)
[2022-12-13] MEDS: Carboxymethylcellulose Sodium 1% Ophth Gel 15 ML Bottle EYEBOTH SCH (09:13)
[2022-12-13] MEDS: Melatonin 3 MG Tab PO SCH (21:11)
[2022-12-13] MEDS: QUEtiapine 100 MG Tab PO SCH (21:11)
[2022-12-14] MEDS: Levothyroxine 75 MCG Tab PO SCH (05:31)
[2022-12-14] MEDS: Famotidine 10 MG Tab PO SCH (08:38)
[2022-12-14] MEDS: Anastrozole 1 MG Tab PO SCH (08:39)
[2022-12-14] MEDS: Potassium Chloride 20 MEQ Tab.ER PO SCH ×2 (08:39→20:03)
[2022-12-14] MEDS: QUEtiapine 25 MG Tab PO SCH ×2 (08:39→15:25)
[2022-12-14] MEDS: Apixaban 5 MG Tab PO SCH ×2 (08:39→20:03)
[2022-12-14] MEDS: CYANOCOBALAMIN 100 MCG PO SCH (08:40)
[2022-12-14] MEDS: Carboxymethylcellulose Sodium 1% Ophth Gel 15 ML Bottle EYEBOTH SCH (08:47)
[2022-12-14] MEDS: QUEtiapine 100 MG Tab PO SCH (20:03)
[2022-12-14] MEDS: Melatonin 3 MG Tab PO SCH (20:03)
[2022-12-15] MEDS: Levothyroxine 75 MCG Tab PO SCH (05:24)
[2022-12-15] MEDS ORDERED: Acetaminophen 325 MG Tab PO PRN (06:59)
[2022-12-15] MEDS ORDERED: Ondansetron 4 MG Tab.DIS PO PRN (07:01)
[2022-12-15] MEDS: Famotidine 10 MG Tab PO SCH (08:19)
[2022-12-15] MEDS: Potassium Chloride 20 MEQ Tab.ER PO SCH ×2 (08:19→20:16)
[2022-12-15] MEDS: CYANOCOBALAMIN 100 MCG PO SCH (08:20)
[2022-12-15] MEDS: QUEtiapine 25 MG Tab PO SCH ×2 (08:20→15:45)
[2022-12-15] MEDS: Anastrozole 1 MG Tab PO SCH (08:20)
[2022-12-15] MEDS: Apixaban 5 MG Tab PO SCH ×2 (08:20→20:16)
[2022-12-15] MEDS: Carboxymethylcellulose Sodium 1% Ophth Gel 15 ML Bottle EYEBOTH SCH (08:20)
[2022-12-15] MEDS: Magnesium Oxide 400 MG Tab PO SCH (10:19)
[2022-12-15] MEDS: Melatonin 3 MG Tab PO SCH (20:16)
[2022-12-15] MEDS: QUEtiapine 100 MG Tab PO SCH (20:17)
[2022-12-16] MEDS: Levothyroxine 75 MCG Tab PO SCH (05:02)
[2022-12-16] MEDS: Apixaban 5 MG Tab PO SCH ×2 (09:50→22:16)
[2022-12-16] MEDS: Magnesium Oxide 400 MG Tab PO SCH (09:51)
[2022-12-16] MEDS: Potassium Chloride 20 MEQ Tab.ER PO SCH ×2 (09:51→22:15)
[2022-12-16] MEDS: Anastrozole 1 MG Tab PO SCH (09:59)
[2022-12-16] MEDS: CYANOCOBALAMIN 100 MCG PO SCH (10:25)
[2022-12-16] MEDS ORDERED: Anastrozole 1 MG Tab PO SCH (10:30)
[2022-12-16] MEDS: QUEtiapine 25 MG Tab PO SCH ×3 (10:45→15:44)
[2022-12-16] MEDS: Famotidine 10 MG Tab PO SCH ×2 (10:45→12:06)
[2022-12-16] MEDS: Carboxymethylcellulose Sodium 1% Ophth Gel 15 ML Bottle EYEBOTH SCH ×2 (10:46→12:07)
[2022-12-16] MEDS: QUEtiapine 100 MG Tab PO SCH (22:15)
[2022-12-16] MEDS: Melatonin 3 MG Tab PO SCH (22:16)
[2022-12-17] MEDS: Levothyroxine 75 MCG Tab PO SCH (06:39)
[2022-12-17] MEDS: Carboxymethylcellulose Sodium 1% Ophth Gel 15 ML Bottle EYEBOTH SCH (08:00)
[2022-12-17] MEDS: Anastrozole 1 MG Tab PO SCH (08:00)
[2022-12-17] MEDS: Magnesium Oxide 400 MG Tab PO SCH (08:00)
[2022-12-17] MEDS: QUEtiapine 25 MG Tab PO SCH ×2 (08:00→14:11)
[2022-12-17] MEDS: Apixaban 5 MG Tab PO SCH ×2 (08:00→20:10)
[2022-12-17] MEDS: Famotidine 10 MG Tab PO SCH (08:00)
[2022-12-17] MEDS: Potassium Chloride 20 MEQ Tab.ER PO SCH ×2 (08:00→20:10)
[2022-12-17] MEDS: QUEtiapine 100 MG Tab PO SCH (20:10)
[2022-12-17] MEDS: Melatonin 3 MG Tab PO SCH (20:10)
[2022-12-18] MEDS: Levothyroxine 75 MCG Tab PO SCH (05:36)
[2022-12-18] MEDS: Apixaban 5 MG Tab PO SCH ×2 (08:36→20:42)
[2022-12-18] MEDS: Famotidine 10 MG Tab PO SCH (08:36)
[2022-12-18] MEDS: Carboxymethylcellulose Sodium 1% Ophth Gel 15 ML Bottle EYEBOTH SCH (08:36)
[2022-12-18] MEDS: Magnesium Oxide 400 MG Tab PO SCH (08:36)
[2022-12-18] MEDS: Potassium Chloride 20 MEQ Tab.ER PO SCH ×2 (08:36→20:42)
[2022-12-18] MEDS: QUEtiapine 25 MG Tab PO SCH ×2 (08:36→15:44)
[2022-12-18] MEDS: Anastrozole 1 MG Tab PO SCH (08:36)
[2022-12-18] MEDS: QUEtiapine 100 MG Tab PO SCH (20:42)
[2022-12-18] MEDS: Melatonin 3 MG Tab PO SCH (20:42)
[2022-12-19] MEDS: Levothyroxine 75 MCG Tab PO SCH (05:44)
[2022-12-19] MEDS: Anastrozole 1 MG Tab PO SCH (08:01)
[2022-12-19] MEDS: Magnesium Oxide 400 MG Tab PO SCH (08:02)
[2022-12-19] MEDS: Apixaban 5 MG Tab PO SCH ×2 (08:02→22:22)
[2022-12-19] MEDS: Potassium Chloride 20 MEQ Tab.ER PO SCH ×2 (08:02→22:22)
[2022-12-19] MEDS: QUEtiapine 25 MG Tab PO SCH ×2 (08:03→16:00)
[2022-12-19] MEDS: Famotidine 10 MG Tab PO SCH (08:03)
[2022-12-19] MEDS: Carboxymethylcellulose Sodium 1% Ophth Gel 15 ML Bottle EYEBOTH SCH (08:03)
[2022-12-19] MEDS: QUEtiapine 100 MG Tab PO SCH (22:22)
[2022-12-19] MEDS: Melatonin 3 MG Tab PO SCH (22:22)
[2022-12-20] MEDS: Levothyroxine 75 MCG Tab PO SCH (06:48)
[2022-12-20] MEDS: Potassium Chloride 20 MEQ Tab.ER PO SCH ×2 (08:18→20:55)
[2022-12-20] MEDS: Anastrozole 1 MG Tab PO SCH (08:18)
[2022-12-20] MEDS: Famotidine 10 MG Tab PO SCH (08:18)
[2022-12-20] MEDS: Apixaban 5 MG Tab PO SCH ×2 (08:18→20:54)
[2022-12-20] MEDS: Carboxymethylcellulose Sodium 1% Ophth Gel 15 ML Bottle EYEBOTH SCH (08:18)
[2022-12-20] MEDS: Magnesium Oxide 400 MG Tab PO SCH (08:18)
[2022-12-20] MEDS: QUEtiapine 25 MG Tab PO SCH ×2 (08:19→14:53)
[2022-12-20] MEDS: Melatonin 3 MG Tab PO SCH (20:54)
[2022-12-20] MEDS: QUEtiapine 100 MG Tab PO SCH (20:55)
[2022-12-21] MEDS: Levothyroxine 75 MCG Tab PO SCH (06:41)
[2022-12-21] MEDS: QUEtiapine 25 MG Tab PO SCH ×2 (08:45→15:41)
[2022-12-21] MEDS: Apixaban 5 MG Tab PO SCH ×2 (08:45→20:42)
[2022-12-21] MEDS: Potassium Chloride 20 MEQ Tab.ER PO SCH ×2 (08:45→20:42)
[2022-12-21] MEDS: Anastrozole 1 MG Tab PO SCH (08:46)
[2022-12-21] MEDS: Famotidine 10 MG Tab PO SCH (08:46)
[2022-12-21] MEDS: Magnesium Oxide 400 MG Tab PO SCH (08:46)
[2022-12-21] MEDS: Carboxymethylcellulose Sodium 1% Ophth Gel 15 ML Bottle EYEBOTH SCH (08:50)
[2022-12-21] MEDS: QUEtiapine 100 MG Tab PO SCH (20:41)
[2022-12-21] MEDS: Melatonin 3 MG Tab PO SCH (20:41)
[2022-12-22] MEDS: Levothyroxine 75 MCG Tab PO SCH (06:21)
[2022-12-22] MEDS: Famotidine 10 MG Tab PO SCH (09:45)
[2022-12-22] MEDS: Magnesium Oxide 400 MG Tab PO SCH (09:45)
[2022-12-22] MEDS: Apixaban 5 MG Tab PO SCH ×2 (09:45→21:50)
[2022-12-22] MEDS: Carboxymethylcellulose Sodium 1% Ophth Gel 15 ML Bottle EYEBOTH SCH (09:45)
[2022-12-22] MEDS: Potassium Chloride 20 MEQ Tab.ER PO SCH ×2 (09:45→21:50)
[2022-12-22] MEDS: QUEtiapine 25 MG Tab PO SCH ×2 (09:46→14:02)
[2022-12-22] MEDS: Anastrozole 1 MG Tab PO SCH (09:55)
[2022-12-22] MEDS ORDERED: Aluminum Hydroxide/Magnesium Hydroxide/Simethicone Susp 30 ML Cup PO PRN (21:29)
[2022-12-22] MEDS: QUEtiapine 100 MG Tab PO SCH (21:50)
[2022-12-22] MEDS: Melatonin 3 MG Tab PO SCH (21:50)
[2022-12-23] MEDS: Levothyroxine 75 MCG Tab PO SCH (06:48)
[2022-12-23] MEDS: Magnesium Oxide 400 MG Tab PO SCH (08:57)
[2022-12-23] MEDS: Carboxymethylcellulose Sodium 1% Ophth Gel 15 ML Bottle EYEBOTH SCH (08:57)
[2022-12-23] MEDS: Potassium Chloride 20 MEQ Tab.ER PO SCH (08:57)
[2022-12-23] MEDS: Anastrozole 1 MG Tab PO SCH (08:57)
[2022-12-23] MEDS: Apixaban 5 MG Tab PO SCH (08:57)
[2022-12-23] MEDS: Famotidine 10 MG Tab PO SCH (08:57)
[2022-12-23] MEDS: QUEtiapine 25 MG Tab PO SCH ×2 (08:58→15:09)
== END 2022-12-23 16:33 | disposition home health service (06) | DRG 690 ==
LOC: JD.ED 10:04 → JD.MS 14:52
PROVIDERS: ADMIT Internal Medicine; ATTEND Internal Medicine
DX: N39.0 Urinary tract infection, site not specified (principal); I11.0 Hypertensive heart disease with heart failure; I50.9 Heart failure, unspecified; F41.9 Anxiety disorder, unspecified; F31.9 Bipolar disorder, unspecified; N18.32 Chronic kidney disease, stage 3b; E83.42 Hypomagnesemia; Z79.899 Other long term (current) drug therapy; Z86.16 Personal history of COVID-19; E87.6 Hypokalemia; M19.90 Unspecified osteoarthritis, unspecified site; Z66 Do not resuscitate; E78.00 Pure hypercholesterolemia, unspecified; B95.2 Enterococcus as the cause of diseases classified elsewhere; I12.9 Hypertensive chronic kidney disease with stage 1 through stage 4 chronic kidney disease, or unspecified chronic kidney disease; E53.8 Deficiency of other specified B group vitamins; F03.C0 Unspecified dementia, severe, without behavioral disturbance, psychotic disturbance, mood disturbance, and anxiety; K21.9 Gastro-esophageal reflux disease without esophagitis; E03.9 Hypothyroidism, unspecified; M81.0 Age-related osteoporosis without current pathological fracture; Z98.49 Cataract extraction status, unspecified eye; Z90.89 Acquired absence of other organs; Z90.49 Acquired absence of other specified parts of digestive tract; Z98.890 Other specified postprocedural states; Z90.10 Acquired absence of unspecified breast and nipple; Z91.041 Radiographic dye allergy status; Z86.718 Personal history of other venous thrombosis and embolism
CPT/HCPCS: 36410; 36415; 51701; 70450; 70450-26; 80048; 80053; 81001; 82140; 82533; 82947; 83605; 83735; 84100; 84484; 85025; 87086; 92610-GN; 93005; 93010; 94760; 96361; 96365; 97116-GP; 97162-GP; 97166-GO; 97530-GO; 97530-GP; 97535-GO; 99285; 99285-25; A9270-GY; J0696; J3475; J3480; J3490; J7030